=== PATIENT | female | born 1990 | race Caucasian/White ===

== ENCOUNTER 2016-08-06 11:11 | Outpatient (CLI) | payer OTHER | END 2016-08-06 11:58 | disposition home or self-care (01) | LOC: FBPOP 11:11 | PROVIDERS: ATTEND Obstetrics & Gynecology | DX: Z34.83 Encounter for supervision of other normal pregnancy, third trimester (principal); R10.9 Unspecified abdominal pain | CPT/HCPCS: 59025; G0463; 99213 ==

== ENCOUNTER 2016-08-22 05:55 | Inpatient (IN) | payer OTHER ==
[2016-08-22] MEDS ORDERED: OXYTOCIN 10 UNIT/ML 1 ML VIAL IM PRN (06:07)
[2016-08-22] MEDS ORDERED: CARBOPROST TROMETHAMINE 250 MCG/ML 1 ML AMP IM PRN (06:07)
[2016-08-22] MEDS ORDERED: AMPICILLIN 2,000 MG in SODIUM CHLORIDE 0.9% 100 ML IVPB STA (06:07)
[2016-08-22] MEDS ORDERED: LIDOCAINE 1% (PF) 10 MG/ML (30 ML SDV) SQ PRN (06:07)
[2016-08-22] MEDS ORDERED: TERBUTALINE 1 MG/ML VIAL SQ PRN (06:07)
[2016-08-22] MEDS ORDERED: METHYLERGONOVINE 0.2 MG/ML 1 ML AMP IM PRN (06:07)
[2016-08-22] MEDS: LACTATED RINGERS 1,000 ML IV SCH ×2 (06:11→12:12)
[2016-08-22] MEDS ORDERED: OXYTOCIN 30 UNITS/500 ML NS 30 UNIT in SALINE 1 500ML.BAG IV SCH ×2 (06:15→17:00)
[2016-08-22 06:23] LABS: Basophils % (A) 0 %; CH 26.9; CHCM 32.6; Eosinophils # (A) 0.1 k/uL (0-0.7); Eosinophils % (A) 1 %; HCT 35.6 % (34.0-46.0); HDW 3.13; HGB 11.6 gm/dL (11.4-16.0); Hypochromasia Slight; Large Platelets Flag Slight; Luc # (Auto) 0.16; Luc % (Auto) 2; Lymphocytes # (A) 1.6 k/uL (1.0-4.8); Lymphocytes % (A) 16 %; MCHC 32.6 g/dL (31.0-37.0); MCV 82.8 fL (80.0-100.0); Mean Platelet Volume 10.3; Monocytes # (A) 0.4 k/uL (0-1.0); Monocytes % (A) 4 %; Neutrophils # (A) 7.5 k/uL (1.3-7.7); Neutrophils % (A) 76 %; RDW 15.4 % (11.5-15.5); WBC 9.9 k/uL (3.8-10.6); WBC (Perox) 10.25
--- NOTE | 2016-08-22 07:52 | P.HPOB ---
History of Present Illness H&P Date: 08/22/16 Chief Complaint: Induction of Labor 25 year old presents at 39 weeks for induction of labor. Her cervix is 2/70 /-2 and she is not anabel. heart tones 135-140 with moderate variability and reactive. Review of Systems All systems: negative Constitutional: Denies chills, Denies fever Eyes: denies blurred vision, denies pain Ears, nose, mouth and throat: Denies headache, Denies sore throat Cardiovascular: Denies chest pain, Denies shortness of breath Respiratory: Denies cough Gastrointestinal: Denies abdominal pain, Denies diarrhea, Denies nausea, Denies vomiting Genitourinary: Denies dysuria, Denies hematuria Musculoskeletal: Denies myalgias Integumentary: Denies pruritus, Denies rash Neurological: Denies numbness, Denies weakness Psychiatric: Denies anxiety, Denies depression Endocrine: Denies fatigue, Denies weight change Past Medical History Past Medical History: No Reported History Additional Past Medical History / Comment(s): Obstetric history: She has had 2 previous vaginal deliveries. this is her third and she has had care with id since 12 weeks. o+, abs neg, Rub Imm, RPR Nr, rhpe B neg, toxo neg. Abnormal 1hr, normal 3hr GTT. GBS +. History of Any Multi-Drug Resistant Organisms: None Reported Past Surgical History: Cholecystectomy Past Anesthesia/Blood Transfusion Reactions: No Reported Reaction Past Psychological History: No Psychological Hx Reported Smoking Status: Never smoker Past Alcohol Use History: None Reported Past Drug Use History: None Reported - Past Family History Mother Family Medical History: No Reported History Medications and Allergies Home Medications Medication Instructions Recorded Confirmed Type Pnv with Ca,No.72/Iron/FA 1 each PO DAILY 08/06/16 08/22/16 History [ Plus Tablet] Allergies Allergy/AdvReac Type Severity Reaction Status Date / Time No Known Allergies Allergy Verified 08/22/16 06:06 Exam Osteopathic Statement: *. No significant issues noted on an osteopathic structural exam other than those noted in the History and Physical/Consult. - Vital Signs Vital signs: Vital Signs Temp Pulse Resp BP 08/22/16 06:15 96.8 F L 100 16 164/86 Intake and Output 08/21/16 08/22/16 08/22/16 22:59 06:59 14:59 Other: Weight 119.748 kg Heart: RRR Lungs: CTAB Abdomen: soft, nontender Extremeties: neg juany's Results Result Diagrams: 08/22/16 06:00 Assessment and Plan (1) Normal labor Status: Acute Plan: 1. admit to [facility] 2. induction of labor with amniotomy and pitocin
[2016-08-22 08:30] LABS: Large Platelets Present; Manual Review Performed
[2016-08-22] MEDS: AMPICILLIN 1,000 MG in SODIUM CHLORIDE 0.9% 50 ML IVPB SCH ×2 (10:08→14:27)
[2016-08-22] MEDS ORDERED: fentaNYL (PF) 50 MCG/ML 5 ML AMP ONE (11:31)
[2016-08-22] MEDS ORDERED: BUPIVACAINE (PF) 0.25% 30 ML VIAL ONE (11:31)
[2016-08-22] MEDS ORDERED: SODIUM CHLORIDE 0.9% 100 ML BAG ONE (11:31)
[2016-08-22] MEDS ORDERED: LANOLIN CREAM 5 GM TUBE TOPICAL PRN (16:56)
[2016-08-22] MEDS ORDERED: ACETAMINOPHEN TAB 325 MG TAB PO PRN (16:56)
[2016-08-22] MEDS ORDERED: diphenhydrAMINE 50 MG/ML 1 ML VIAL IVP PRN ×2 (16:56)
[2016-08-22] MEDS ORDERED: Acetaminophen-Codeine 300-30mg TAB PO PRN ×2 (16:56)
[2016-08-22] MEDS ORDERED: SIMETHICONE 80 MG CHEWABLE PO PRN (16:56)
[2016-08-22] MEDS ORDERED: BENZOCAINE/MENTHOL SPRAY 1 GM/SPRAY AEROSOL TOPICAL PRN (16:56)
[2016-08-22] MEDS ORDERED: diphenhydrAMINE 25 MG CAP PO PRN (16:56)
[2016-08-22] MEDS ORDERED: IBUPROFEN 600 MG TAB PO PRN (16:56)
[2016-08-22] MEDS ORDERED: ZOLPIDEM 5 MG TAB PO PRN (16:56)
[2016-08-22] MEDS ORDERED: diphenhydrAMINE 50 MG CAP PO PRN (16:56)
[2016-08-22] MEDS ORDERED: HYDROCORTISONE 2.5% RECTAL CREAM 30 GM TUBE RECTAL PRN (16:56)
[2016-08-22] MEDS ORDERED: WITCH HAZEL 1 EACH MED..PAD TOPICAL PRN (16:56)
--- NOTE | 2016-08-22 16:59 | P.PROBDLV ---
Vaginal Delivery Note - . Vaginal Delivery Note: 25-year-old presents at 39 weeks for induction of labor. Her cervix was 2 cm dilated, 70% effaced, -2 station. She is not anabel. heart tones 135-140 with moderate variability and reactive. Amniotomy was performed at 7:45 AM and clear fluid noted. Pitocin was also started. When she was 4 cm she got an epidural and was comfortable. Her cervix was completely dilated by 1622. She pushed, and delivered a viable female infant over intact perineum under epidural anesthesia at 1631. Head delivered OA, nuchal cord 1 easily reduced, anterior shoulder delivered gentle downward traction followed by posterior shoulder and rest of body. Nose and mouth bulb suctioned, cord clamped and cut, infant placed on mother's abdomen. Apgars 9, 9, weight 8 lbs. 2 oz. Placenta delivered spontaneously, intact with three-vessel cord at 1633. Vagina, cervix, perineum inspected. A left vaginal laceration was repaired with 3-0 Vicryl. Estimated blood loss 250 mL. Mother and baby in stable condition.
[2016-08-22] MEDS: SENNOSIDES-DOCUSATE SODIUM 1 EACH TAB PO SCH (20:29)
[2016-08-23 07:54] VITALS: RESP 18
--- NOTE | 2016-08-23 08:00 | P.DS ---
Providers Date of admission: 08/22/16 05:55 Expected date of discharge: 08/23/16 Attending physician: Janette Conner Primary care physician: Janette Conner - Discharge Diagnosis(es) (1) Normal labor Current Visit: Yes Status: Resolved (2) Normal vaginal delivery Current Visit: Yes Status: Acute Hospital Course: Patient presented for induction of labor. She underwent a normal vaginal delivery and had an uncomplicated post course. She will be discharged home PPD #1 in stable condition to follow up with me in 6 weeks. Plan - Discharge Summary Discharge Medication List Pnv with Ca,No.72/Iron/FA [ Plus Tablet] 1 each PO DAILY 08/06/16 [ History] Follow up Appointment(s)/Referral(s): Janette Conner DO [Primary Care Provider] - 6 Weeks Discharge Disposition: HOME SELF-CARE
[2016-08-23] MEDS: SENNOSIDES-DOCUSATE SODIUM 1 EACH TAB PO SCH (08:03)
[2016-08-23 16:34] VITALS: BP 131/82; PULSE 93; TEMP 98.9
== END 2016-08-23 17:00 | disposition home or self-care (01) | DRG 775 ==
LOC: 4FBP 05:55
PROVIDERS: ADMIT Obstetrics & Gynecology; ATTEND Obstetrics & Gynecology
PROC: 10E0XZZ Delivery of Products of Conception, External Approach (ICD-10-PCS; principal; 2016-08-22)
PROC: 0UQGXZZ Repair Vagina, External Approach (ICD-10-PCS; 2016-08-22)
PROC: 3E033VJ Introduction of Other Hormone into Peripheral Vein, Percutaneous Approach (ICD-10-PCS; 2016-08-22)
PROC: 10907ZC Drainage of Amniotic Fluid, Therapeutic from Products of Conception, Via Natural or Artificial Opening (ICD-10-PCS; 2016-08-22)
PROC: 00HU33Z Insertion of Infusion Device into Spinal Canal, Percutaneous Approach (ICD-10-PCS; 2016-08-22)
DX: O69.81X0 Labor and delivery complicated by cord around neck, without compression, not applicable or unspecified (principal); O71.4 Obstetric high vaginal laceration alone; Z37.0 Single live birth; Z3A.39 39 weeks gestation of pregnancy
CPT/HCPCS: 85025; 88307

== ENCOUNTER 2018-08-05 20:48 | Inpatient (IN) | payer OTHER ==
[2018-08-05] MEDS ORDERED: LACTATED RINGERS 1,000 ML IV SCH ×2 (21:45→22:45)
[2018-08-05 22:14] LABS: MCV 79.6 fL (80.0-100.0); RDW 15.7 % (11.5-15.5)
[2018-08-05 22:20] LABS: Appearance,Urine Cloudy (Clear); Bacteria,Urine Rare /hpf; Basophils % (A) 0 %; Bilirubin,Urine Negative (Negative); Blood,Urine Negative (Negative); Color,Urine Yellow; Eosinophils # (A) 0.1 k/uL (0-0.7); Eosinophils % (A) 1 %; Glucose,Urine (UA) 1+ (Negative); HGB 10.2 gm/dL (11.4-16.0); Ketones,Urine Negative (Negative); Leukocyte Esterase,Urine Negative (Negative); Lymphocytes % (A) 26 %; MCH 26.3 pg (25.0-35.0); Mean Platelet Volume 10.7; Monocytes # (A) 0.4 k/uL (0-1.0); Monocytes % (A) 6 %; Mucus,Urine Rare /hpf; Neutrophils % (A) 65 %; Nitrite,Urine Negative (Negative); PH, Urine 6.5 (5.0-8.0); Platelet Count 168 k/uL (150-450); Protein,Urine Trace (Negative); RBC,Urine 1 /hpf (0-5); Specific Gravity,Urine 1.014 (1.001-1.035); Squamous Epithelial Cell,Urine 1 /hpf (0-4); Urobilinogen,Urine <2.0 mg/dL (<2.0); WBC 7.6 k/uL (3.8-10.6); WBC,Urine 1 /hpf (0-5)
[2018-08-05 22:23] LABS: ALT 27 U/L (9-52); AST 24 U/L (14-36); Blood Urea Nitrogen 6 mg/dL (7-17); LDH 336 U/L (313-618); Uric Acid 2.8 mg/dL (3.7-7.4)
[2018-08-05 22:26] LABS: Amphetamine Screen,Urine Not Detected (NotDetected); Barbiturate Screen,Urine Not Detected (NotDetected); Benzodiazepines Screen,Urine Not Detected (NotDetected); Cocaine Screen,Urine Not Detected (NotDetected); Methadone Screen, Urine Not Detected (NotDetected); Opiate Screen,Urine Not Detected (NotDetected); Oxycodone Screen, Urine Not Detected (NotDetected); Phencyclidine Screen,Urine Not Detected (NotDetected); Tricyclic Antidepressant,Urine Not Detected (NotDetected); Urn Cannabinoid Scrn Not Detected (NotDetected)
[2018-08-05 22:30] LABS: INR 0.8 (<1.2); Prothrombin Time 9.3 sec (9.0-12.0)
[2018-08-05 22:31] LABS: Anisocytosis (M) Present; Polychromasia Present
[2018-08-05 22:32] LABS: Large Platelets Present
[2018-08-05] MEDS ORDERED: TERBUTALINE 1 MG/ML VIAL SQ PRN (22:33)
[2018-08-05] MEDS ORDERED: CARBOPROST TROMETHAMINE 250 MCG/ML 1 ML AMP IM PRN (22:33)
[2018-08-05] MEDS ORDERED: OXYTOCIN 10 UNIT/ML 1 ML VIAL IM PRN (22:33)
[2018-08-05] MEDS ORDERED: LIDOCAINE 0.5% (PF) 5 MG/ML (50 ML SDV) SQ PRN (22:33)
[2018-08-05] MEDS ORDERED: METHYLERGONOVINE 0.2 MG/ML 1 ML AMP IM PRN (22:33)
[2018-08-05] MEDS ORDERED: OXYTOCIN 20 UNITS/1000 ML NS 1,000 ML IV SCH (22:45)
--- NOTE | 2018-08-05 22:57 | P.HPOB ---
History of Present Illness H&P Date: 08/05/18 Chief Complaint: Contractions, no care This patient is a 27-year-old 4 para 3 female estimated date of confinement 08/11/2018 estimated gestational age 39 and one sevenths weeks who presents to labor and delivery with complaints of contractions. Patient's history is such that she did begin care with Dr. Conner in December however at approximately 26 weeks she stopped getting care. She states at this time she was seen a lay nurse nremt, however it does not appear that she was having standardized testing or care. Patient did have an abnormal Glucola of 137 and states that she is not had a 3 hour gtt. Patient also has had history of positive strep cultures in 2 of her pregnancies and has not had group B strep testing. Last ultrasound was at approximately 20 weeks. 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 Patient's blood pressure this evening is elevated on admission 158/85 and 166/76. Patient states that her blood pressures were only elevated with her lay nurse nremt when the nremt annoyed her. Otherwise they have been fine. I have no records available. Past obstetrical history is such that she's had 3 vaginal deliveries ranging in weight from 7 lbs. 10 oz.-8 lbs. 10 oz. Initial care with Dr. Conner does show normal anatomy. Patient now presents to labor and delivery requesting care. Review of Systems Genitourinary: Reports Menstruation: Reports amenorrhea Past Medical History Past Medical History: No Reported History Additional Past Medical History / Comment(s): Patient had 3 vaginal deliveries. Patient had a positive strep with 2 of these pregnancies. History of Any Multi-Drug Resistant Organisms: None Reported Past Surgical History: Cholecystectomy Past Anesthesia/Blood Transfusion Reactions: No Reported Reaction Smoking Status: Never smoker - Past Family History Mother Family Medical History: No Reported History Medications and Allergies Home Medications Medication Instructions Recorded Confirmed Type Pnv,Calcium 72/Iron/Folic Acid 1 each PO DAILY 08/06/16 08/05/18 History [ Plus Tablet] Calcium Carbonate [Tums] 500 mg PO AC-TID PRN 08/05/18 08/05/18 History Allergies Allergy/AdvReac Type Severity Reaction Status Date / Time No Known Allergies Allergy Verified 08/05/18 21:29 Exam Intake and Output 08/05/18 08/05/18 08/05/18 06:59 14:59 22:59 Other: Weight 118.841 kg - OBG Physical Exam Cervix: Cervix is 3 cm dilated 50% effaced and -2 station. Uterus: enlarged Results labs show she is O positive, rubella immune, RPR nonreactive, hepatitis B negative, HIV nonreactive, toxoplasmosis was negative, Glucola was 137 and patient did not do a 3 hour gtt. Patient had a normal anatomy ultrasound at 20 weeks. Group B strep status is unknown. Ultrasound this evening shows a vertex 8 lbs. 4 oz. Result Diagrams: 08/05/18 21:50 08/05/18 21:50 Abnormal Lab Results - Last 24 Hours (Table) 08/05/18 08/05/18 08/05/18 Range/Units 21:50 21:50 21:50 Hgb 10.2 L (11.4-16.0) gm/dL Hct 31.0 L (34.0-46.0) % MCV 79.6 L (80.0-100.0) fL RDW 15.7 H (11.5-15.5) % BUN 6 L (7-17) mg/dL Creatinine 0.46 L (0.52-1.04) mg/dL Uric Acid 2.8 L (3.7-7.4) mg/dL Urine Appearance Cloudy H (Clear) Urine Protein Trace H (Negative) Urine Glucose (UA) 1+ H (Negative) Urine Bacteria Rare H (None) /hpf Urine Mucus Rare H (None) /hpf Assessment and Plan Assessment: This is a 27-year-old 4 para 3 female 39 and one sevenths weeks gestation who presents to labor and delivery with complaints of contractions and requesting care. 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 Patient's blood pressures elevated however she does not have evidence of preeclampsia. This is most likely gestational hypertension. Patient is a history of positive strep and unknown status at this time. Patient had an abnormal glucose screen but did not complete the standardized test and has not had any other glucose testing by her lay nurse nremt. She does have 1+ glucose at this time in her urine. I'm going to check a hemoglobin A1c. Patient understands that certainly she could have gestational diabetes and that the ultrasound estimate of weight is very inaccurate at this point in her gestation. Because of her elevated blood pressures I'm recommending proceed with delivery at this time. She is agreeable to this. I'm going to give her some IV antibiotics, proceed with artificial rupture membranes, and Pitocin augmentation of labor. (1) 39 weeks gestation of Current Visit: Yes Status: Acute Code(s): Z3A.39 - 39 WEEKS GESTATION OF SNOMED Code(s): 21725922 (2) Gestational hypertension Current Visit: Yes Status: Acute Code(s): O13.9 - GESTATIONAL HTN W/O SIGNIFICANT PROTEINURIA, UNSP TRIMESTER SNOMED Code(s): 385305063 (3) Noncompliant patient in third trimester Current Visit: Yes Status: Acute Code(s): O09.893 - SUPERVISION OF OTHER HIGH RISK PREGNANCIES, THIRD TRIMESTER; Z91.19 - PATIENT'S NONCOMPLIANCE W OTH MEDICAL TREATMENT AND REGIMEN SNOMED Code(s): 483190947
[2018-08-05] MEDS ORDERED: AMPICILLIN 2,000 MG in SODIUM CHLORIDE 0.9% 100 ML IVPB ONE (23:00)
[2018-08-05 23:04] VITALS: BMI 44.9
--- NOTE | 2018-08-06 03:13 | US ---
EXAMINATION TYPE: US OB >= 14 wk fetus DATE OF EXAM: 08/05/2018 COMPARISON: None CLINICAL HISTORY: complete ultrasound, minimal carecontractions back pain TECHNIQUE: Transabdominal (TA) GESTATIONAL AGE / DATING Physician Established: (39 weeks/1 days) EDC: 08/11/2018 Dates by LMP: (39 weeks/1 days) EDC: 08/11/2018 Dates by First Scan: No previous this is first scan Dates by Current Scan: (38 weeks/6 days) EDC: 08/13/2018 Beta HCG (if available): Not available at this time SURVEY IUP: Single PLACENTA: Fundal PREVIA: No Previa LIZBETH: 14 cm Normal CERVICAL LENGTH (transabdominal: norm > 3.0cm): Not well visualized. BIOMETRY PRESENTATION: Vertex LIE: Longitudinal BPD: 9.5 cm 38 weeks / 6 days HC: 33.48 cm 38 weeks / 2 days AC: 35.55 cm 39 weeks / 3 days FL: 7.78 cm 39 weeks / 5 days ESTIMATED WEIGHT IN GRAMS: 3748 grams ESTIMATED WEIGHT IN LBS/OZ: 8 lbs. 4 oz. WEIGHT PERCENTAGE BASED ON ESTABLISHED DATES: 74.3% HC/AC: 0.94cm Normal FL/AC: 21.89cm Normal HEART RATE: 147 bpm RHYTHM: Normal IMPRESSION: The ultrasound gestational age is 38 weeks 6 days. The BRI is 08/13/2018. No complicating process seen . Amniotic fluid appears adequate.
[2018-08-06] MEDS ORDERED: BUTORPHANOL 1 MG/ML 1 ML VIAL IV PRN (04:56)
[2018-08-06] MEDS ORDERED: SODIUM CHLORIDE 0.9% 100 ML BAG ONE (06:19)
[2018-08-06] MEDS ORDERED: ROPIVACAINE 5MG/ML 20ML VIAL ONE (06:19)
[2018-08-06] MEDS ORDERED: fentaNYL (PF) 50 MCG/ML 5 ML AMP ONE (06:19)
[2018-08-06] MEDS: AMPICILLIN 1,000 MG in SODIUM CHLORIDE 0.9% 50 ML IVPB SCH ×2 (07:01)
[2018-08-06] MEDS ORDERED: SIMETHICONE 80 MG CHEWABLE PO PRN (07:50)
[2018-08-06] MEDS ORDERED: diphenhydrAMINE 50 MG/ML 1 ML VIAL IVP PRN (07:50)
[2018-08-06] MEDS ORDERED: diphenhydrAMINE 25 MG CAP PO PRN (07:50)
[2018-08-06] MEDS ORDERED: ZOLPIDEM 5 MG TAB PO PRN (07:50)
[2018-08-06] MEDS ORDERED: IBUPROFEN 600 MG TAB PO PRN (07:50)
[2018-08-06] MEDS ORDERED: BISACODYL 10 MG SUPP RECTAL PRN (07:50)
[2018-08-06] MEDS ORDERED: BENZOCAINE/MENTHOL SPRAY 1 GM/SPRAY AEROSOL TOPICAL PRN (07:50)
[2018-08-06] MEDS ORDERED: HYDROCORTISONE 2.5% RECTAL CREAM 30 GM TUBE RECTAL PRN (07:50)
[2018-08-06] MEDS ORDERED: LANOLIN CREAM 5 GM TUBE TOPICAL PRN (07:50)
[2018-08-06] MEDS ORDERED: ACETAMINOPHEN TAB 325 MG TAB PO PRN (07:50)
[2018-08-06] MEDS ORDERED: WITCH HAZEL 1 EACH MED..PAD TOPICAL PRN (07:50)
--- NOTE | 2018-08-06 07:54 | P.PROBDLV ---
Vaginal Delivery Note - . Vaginal Delivery Note: Normal vaginal delivery viable male infant Apgars 9 and 9 delivery time is 0733 hours. Please see dictated H&P for intimate details of this patient's admission. Brief summary this is a 27-year-old 4 para 3 female 39-3/7 weeks gestation presented last evening with complaints of contractions. Patient was not thought to be in labor however did have some elevated blood pressures. Preeclampsia labs were negative. Patient was started on IV antibiotics due to unknown group B strep status and history of positive. She has Pitocin induction of labor per protocol. She has received several doses of Stadol and then does get an epidural for pain control. Patient and pushes one time and pushes the head to the perineum. Posterior perineum is supported we have controlled delivery of infant's head over the intact perineum. Mouth and nares are bulb suctioned. There is a nuchal cord 1 which is reduced. With gentle downward traction we then have deliver the anterior and posterior shoulder and rest this infant's body. This is a vigorous viable male Apgars are 9 and 9 delivery time is 0733 hours. is late on the mother's abdomen the cord is allowed to stop pulsating. Cord is then doubly clamped and cut. Placenta is then spontaneously delivered intact. Estimated blood loss is 100 mL. There are no lacerations and no repairs indicated. and mother stable delivery room.
[2018-08-06] MEDS ORDERED: OXYTOCIN 20 UNITS/1000 ML NS 1,000 ML IV SCH (08:00)
--- NOTE | 2018-08-06 08:04 | P.MSEPDOC ---
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 on Review of Systems - Review of Systems Constitutional: No problems Breast: No problems ENT: No problems Cardiovascular: No problems Respiratory: No problems Gastrointestinal: No problems Genitourinary: No problems Musculoskeletal: No problems Neurological: No problems Skin: No problems Vital Signs - Temperature Temperature: 97.2 F Temperature Source: Temporal Artery Scan - Pulse Right Brachial Pulse Rate: 95 Pulse Assessment Method: Automatic Cuff - Respirations Respiratory Rate: 16 Oxygen Delivery Method: Room Air - Blood Pressure Right Arm Blood Pressure: 106/53 Blood Pressure Mean: 70 Blood Pressure Source: Automatic Cuff Medical Screen Scoring (Pre) - Cervical Exam Dilation: 1-3 cm = 1 Effacement: More than 50% = 2 Membranes: Intact - Uterine Contractions Frequency: N/A Duration: N/A Intensity: N/A - Maternal Vital Signs Maternal Temperature: N/A Maternal Blood Pressure: Systolic >139 = 2 Signs of Preeclampsia: N/A Maternal Respirations: N/A - Pain Assessment Pain Location and Character: Back, Abdomen Pain Scale Used: Numeric (1 - 10) Pain Intensity: 6 Pain Management Goal: 4 Pain Description: *Acute, Cramping, Pressure Pain Frequency: Intermittent Pain Behavior: Vocalization - Maternal Trauma Maternal Trauma: N/A - Assessment Baseline FHR: 135 Heart Rate - NICHD Category: Category I (Normal) = 0 NST: Reactive Position: N/A Station: N/A - Total Score Total Score (Pre): 5 - Level of Risk Level of Risk: Low (0-5) Physician Notification (Pre) - Physician Notified Physician Notified Date: 08/05/18 Physician Notified Time: 21:20 Physician/Practitioner Notifed:: Dr. Parker Spoke With: Dr. Parker New Order Received: Yes - Notification Comment Comment: orders for PI[facility] labs and admitted for induction Disposition - Disposition OB Disposition: Admit, LDRP Suite I agree with the RN Medical Screening Exam: Yes Risk & Benefit of care provided described in d/c instruction: Yes Diagnosis: GESTATIONAL HTN W/O SIGNIFICANT PROTEINURIA, THIRD TRIMESTER
[2018-08-06] MEDS: SENNOSIDES-DOCUSATE SODIUM 1 EACH TAB PO SCH ×2 (13:56→20:34)
--- NOTE | 2018-08-07 06:24 | P.PNOBGVD ---
Subjective - Subjective Patient reports: Reports appetite normal, Reports voiding normally, Reports pain well controlled, Reports ambulating normally : doing well Objective - Latest Vital Signs Latest vital signs: Vital Signs Temp Pulse Resp BP 08/07/18 00:00 97.8 F 96 16 127/59 08/06/18 21:30 138/63 08/06/18 20:00 98.4 F 81 16 150/92 08/06/18 16:00 97.9 F 84 14 148/78 08/06/18 12:00 98 F 90 14 129/72 08/06/18 09:40 97.6 F 83 14 130/61 08/06/18 09:10 88 16 126/72 08/06/18 08:40 80 14 124/76 08/06/18 08:25 78 16 109/53 08/06/18 08:10 77 16 107/52 08/06/18 08:04 97.2 F L 95 16 106/53 08/06/18 07:53 95 16 106/53 08/06/18 07:40 97.2 F L 94 16 119/58 Intake and Output 08/06/18 08/06/18 08/07/18 14:59 22:59 06:59 Other: # Voids 1 - Exam Lungs: bilateral: normal Chest: Normal S1, Normal S2 Extremities: Present: normal Abdomen: Present: normal appearance, soft Uterus: Present: normal, firm Assessment and Plan Assessment: day #1. Patient is resting without complaints wishes to go home. Vital signs are stable she is afebrile. Uterus is firm nontender she's having normal lochia. My impression this is a normal course. Plan is to continue routine care and discharge home later today. (1) 39 weeks gestation of Current Visit: Yes Status: Acute Code(s): Z3A.39 - 39 WEEKS GESTATION OF SNOMED Code(s): 14734222 (2) Gestational hypertension Current Visit: Yes Status: Acute Code(s): O13.9 - GESTATIONAL HTN W/O SIGNIFICANT PROTEINURIA, UNSP TRIMESTER SNOMED Code(s): 283677531 (3) Noncompliant patient in third trimester Current Visit: Yes Status: Acute Code(s): O09.893 - SUPERVISION OF OTHER HIGH RISK PREGNANCIES, THIRD TRIMESTER; Z91.19 - PATIENT'S NONCOMPLIANCE W OTH MEDICAL TREATMENT AND REGIMEN SNOMED Code(s): 130256409
--- NOTE | 2018-08-07 06:29 | P.DS ---
Providers Date of admission: 08/05/18 22:28 Expected date of discharge: 08/07/18 Attending physician: Myles Parker Primary care physician: Stated None - Discharge Diagnosis(es) (1) 39 weeks gestation of Current Visit: Yes Status: Acute (2) Gestational hypertension Current Visit: Yes Status: Acute (3) Noncompliant patient in third trimester Current Visit: Yes Status: Acute Hospital Course: Please see dictated H&P for intimate details of this patient's admission. Brief summary is a 27-year-old 4 para 3 female 39 weeks gestation admitted to labor and delivery with complaints of contractions found to have gestational hypertension. Patient had induction of labor quickly went on have a vaginal delivery viable male . Please see dictated delivery note. day 1 patient's felt be stable for discharge home follow up with me in 6 weeks. Procedures: Induction of labor normal vaginal delivery Patient Condition at Discharge: Good Plan - Discharge Summary New Discharge Prescriptions: No Action Pnv,Calcium 72/Iron/Folic Acid [ Plus Tablet] 1 each PO DAILY Calcium Carbonate [Tums] 500 mg PO AC-TID PRN PRN Reason: Indigestion Discharge Medication List Pnv,Calcium 72/Iron/Folic Acid [ Plus Tablet] 1 each PO DAILY 08/06/16 [ History] Calcium Carbonate [Tums] 500 mg PO AC-TID PRN 08/05/18 [History] Follow up Appointment(s)/Referral(s): Myles Parker MD [STAFF PHYSICIAN] - 09/17/18 3:45 pm Patient Instructions/Handouts: Vaginal Delivery (DC) Discharge Disposition: HOME SELF-CARE
[2018-08-07] MEDS: SENNOSIDES-DOCUSATE SODIUM 1 EACH TAB PO SCH (08:00)
[2018-08-07 09:59] VITALS: BP 151/75; PULSE 83; RESP 18; TEMP 98.3
[2018-08-07 20:15] LABS: Hemoglobin A1C 5.3 % (4.0-6.0)
== END 2018-08-07 10:28 | disposition home or self-care (01) | DRG 807 ==
LOC: FBPOP 20:48 → 4FBP 22:28
PROVIDERS: ADMIT Obstetrics & Gynecology; ATTEND Obstetrics & Gynecology
PROC: 10E0XZZ Delivery of Products of Conception, External Approach (ICD-10-PCS; principal; 2018-08-06)
PROC: 3E033VJ Introduction of Other Hormone into Peripheral Vein, Percutaneous Approach (ICD-10-PCS; principal; 2018-08-06)
PROC: 10907ZC Drainage of Amniotic Fluid, Therapeutic from Products of Conception, Via Natural or Artificial Opening (ICD-10-PCS; principal; 2018-08-06)
PROC: 00HU33Z Insertion of Infusion Device into Spinal Canal, Percutaneous Approach (ICD-10-PCS; principal; 2018-08-06)
PROC: 3E0R3NZ Introduction of Analgesics, Hypnotics, Sedatives into Spinal Canal, Percutaneous Approach (ICD-10-PCS; principal; 2018-08-06)
DX: O13.4 Gestational [pregnancy-induced] hypertension without significant proteinuria, complicating childbirth (principal); Z37.0 Single live birth; O69.81X0 Labor and delivery complicated by cord around neck, without compression, not applicable or unspecified; Z3A.39 39 weeks gestation of pregnancy; Z91.19 Patient's noncompliance with other medical treatment and regimen
CPT/HCPCS: 59025; 76805; 80306; 81001; 82565; 82570; 83036; 83615; 84156; 84450; 84460; 84520; 84550; 85025; 85610; 85730; 86850; 86900; 86901; 96365; 99215